=== PATIENT | female | born 1990 ===

== ENCOUNTER 2020-10-09 00:15 | Emergency (ER) | payer SELFPAY ==
[2020-10-09] MEDS ORDERED: ACETAMINOPHEN 500 MG TAB PO ONE (00:44)
[2020-10-09 01:51] VITALS: BP 129/79
--- NOTE | 2020-10-09 01:51 | Ultrasound Report ---
ULTRASOUND OBSTETRIC INDICATION / CLINICAL INFORMATION: Abdominal pain. TECHNIQUE: Transabdominal and Transvaginal. COMPARISON: None available. FINDINGS: GESTATIONAL SAC: Well-defined oval shape and intrauterine in location. Measures 5.4 mm, which corresp onds to 5 weeks, 2 days. No pole identified. YOLK SAC: No significant abnormality. ADNEXA: No significant abnormality. FREE FLUID: None. ADDITIONAL FINDINGS: None. IMPRESSION: Gestational sac seen with sac size corresponding to 5 weeks, 2 days. No pole identified (pregna ncy is likely too early to identify pole). Signer Name: Delio Valdez MD Signed: 10/09/2020 1:46 AM Workstation Name: [id number]
[2020-10-09 02:10] LABS: Bilirubin,Urine NEG (Negative); Blood,Urine NEG (Negative); Color,Urine Yellow (Yellow); Mucus,Urine FEW /HPF; Protein,Urine <15 mg/dL mg/dL (Negative); Urobilinogen,Urine < 2.0 mg/dL (<2.0)
--- NOTE | 2020-10-09 02:20 | Emergency Department Report ---
ED HPI - General Chief complaint: Abdominal Pain Stated complaint: APPROX 6WKS ;ABDOMINAL PAIN Time Seen by Provider: 10/09/20 02:09 Source: patient Mode of arrival: Ambulatory Limitations: No Limitations - History of Present Illness Initial comments: Patient is a 30-year-old female that presents emergency room with complaints of lower abdominal pain and . Patient states she took a home test 1 week ago and it was positive. Patient states her abdominal pain started 1 week ago. Patient states her pain is worsening. Patient denies nausea and vomiting. Patient denies dysuria. Patient denies chest pain and shortness of breath. Patient denies fever and chills. Patient states the abdominal pain is in her lower abdomen. Patient denies vaginal bleeding. Patient denies loss of fluid per vagina. Patient denies vaginal discharge. Patient states her last LMP was August 26, 2020. Patient denies recent travel. Patient denies recent international travel. Patient denies exposure to the novel coronavirus. Patient denies sick contacts. Patient denies fever and chills. Patient denies cough. Patient denies diarrhea. Patient denies coming in contact with anybody with symptoms of the novel coronavirus. MD Complaint: abdominal pain -: Sudden Radiation: suprapubic Severity: severe Severity scale (0 -10): 10 Quality: aching Consistency: constant Improves with: rest Worsens with: movement Associated symptoms: denies: nausea/vomiting, vaginal bleeding, vaginal discharge, abdominal pain, dysuria, headache, vision changes, malaise, dysparuenia, rash, seizure, shortness of breath, syncope, weakness Vaginal bleeding: none :: Yes OB History - Current : no complications OB History - Previous Pregnancies: no complications Pre- care: none - Related Data : 2 Para: 1 Ab: 0 Allergies Allergy/AdvReac Type Severity Reaction Status Date / Time No Known Allergies Allergy Unverified 10/09/20 00:52 ED Review of Systems ROS: Stated complaint: APPROX 6WKS ;ABDOMINAL PAIN Other details as noted in HPI Constitutional: denies: chills, fever Eyes: denies: eye pain, eye discharge, vision change ENT: denies: ear pain, throat pain Respiratory: denies: cough, shortness of breath, wheezing Cardiovascular: denies: chest pain, palpitations Endocrine: no symptoms reported Gastrointestinal: as per HPI, abdominal pain. denies: nausea, diarrhea Genitourinary: denies: urgency, dysuria, discharge Musculoskeletal: denies: back pain, joint swelling, arthralgia Skin: denies: rash, lesions Neurological: denies: headache, weakness, paresthesias Psychiatric: denies: anxiety, depression Hematological/Lymphatic: denies: easy bleeding, easy bruising ED Past Medical Hx - Past Medical History Previous Medical History?: No - Surgical History Past Surgical History?: No - Family History Family history: no significant - Social History Smoking Status: Never Smoker Substance Use Type: None ED Physical Exam - General Limitations: No Limitations General appearance: alert, in no apparent distress - Head Head exam: Present: atraumatic, normocephalic - Eye Eye exam: Present: normal appearance - ENT ENT exam: Present: mucous membranes moist - Neck Neck exam: Present: normal inspection - Respiratory Respiratory exam: Present: normal lung sounds bilaterally. Absent: respiratory distress - Cardiovascular Cardiovascular Exam: Present: regular rate, normal rhythm. Absent: systolic mu rmur, diastolic murmur, rubs, gallop - GI/Abdominal GI/Abdominal exam: Present: soft, normal bowel sounds. Absent: distended, tenderness, guarding - Extremities Exam Extremities exam: Present: normal inspection - Back Exam Back exam: Present: normal inspection - Neurological Exam Neurological exam: Present: alert, oriented X3 - Psychiatric Psychiatric exam: Present: normal affect, normal mood - Skin Skin exam: Present: warm, dry, intact, normal color. Absent: rash ED Course Vital Signs 10/09/20 00:43 Temperature 98.6 F Pulse Rate 86 Respiratory 20 Rate Blood Pressure 129/79 O2 Sat by Pulse 99 Oximetry - Reevaluation(s) Reevaluation #1: I discussed all results and clinical findings with patient. I discussed plan of care with patient. Patient agrees with plan of care. Patient is stable for discharge. Patient will be discharged home. Patient given discharge instructions. Patient voiced understanding of discharge instructions. 10/09/20 03:15 ED Medical Decision Making - Lab Data Result diagrams: 10/09/20 01:49 10/09/20 01:49 - Radiology Data Radiology results: report reviewed ULTRASOUND OBSTETRIC INDICATION / CLINICAL INFORMATION: Abdominal pain. TECHNIQUE: Transabdominal and Transvaginal. COMPARISON: None available. FINDINGS: GESTATIONAL SAC: Well-defined oval shape and intrauterine in location. Measures 5.4 mm, which corresponds to 5 weeks, 2 days. No pole identified. YOLK SAC: No significant abnormality. ADNEXA: No significant abnormality. FREE FLUID: None. ADDITIONAL FINDINGS: None. IMPRESSION: Gestational sac seen with sac size corresponding to 5 weeks, 2 days. No pole identified ( is likely too early to identify pole). - Medical Decision Making Patient is a 30-year-old female that presents emergency room with complaints of lower abdominal pain. Patient had a home positive a week ago. Patient complained of lower abdominal pain. Patient notes persistent. Patient claims lower abdominal pain. Patient had an ultrasound and ultrasound showed an early IUP. Patient stable for discharge. Patient given discharge instructions - Differential Diagnosis , lower abdominal pain , UTI, anemia Critical care attestation.: If time is entered above; I have spent that time in minutes in the direct care of this critically ill patient, excluding procedure time. ED Disposition Clinical Impression: Abdominal pain Qualifiers: Abdominal location: lower abdomen, unspecified Qualified Code(s): R10.30 - Lower abdominal pain, unspecified Qualifiers: Weeks of gestation: less than 8 weeks Qualified Code(s): Z3A.01 - Less than 8 weeks gestation of Disposition: TO HOME OR SELFCARE Is pt being admited?: No Does the pt Need Aspirin: No Condition: Stable Instructions: Creating a Plan, First Trimester of , [id number], Abdominal Pain During , Abdominal Pain (ED) Additional Instructions: Patient to follow-up with primary care in 2 to 3 days. Patient to follow-up with [facility] in 2 to 3 days. Patient to rest. Patient to increase water. Patient to avoid strenuous exercise or heavy lifting until cleared by [facility]. Patient to take Tylenol as needed for pain. Patient to take meds as directed. Patient to return to the ER if condition worsens, changes or new symptoms arise. Patient to take a vitamin. Referrals: PRIMARY MD CARON [Primary Care Provider] - 2-3 Days FREDDIE BELTRAN MD [Staff Physician] - 2-3 Days Time of Disposition: 03:15
[2020-10-09 02:28] LABS: Alanine Aminotransferase 27 units/L (7-56); Albumin 4.3 g/dL (3.9-5); Blood Urea Nitrogen 12 mg/dL (7-17); Calcium 9.1 mg/dL (8.4-10.2); Hemolysis Index 3
[2020-10-09 02:29] LABS: Basophils % (Auto) 0.4 % (0.0-1.8); Eosinophils # (Auto) 0.1 K/mm3 (0.0-0.4); Eosinophils % (Auto) 1.4 % (0.0-4.3); Lymphocytes # (Auto) 3.5 K/mm3 (1.2-5.4); Lymphocytes % (Auto) 34.4 % (13.4-35.0); Mean Corpuscular HGB Conc 34 % (30-34); Mean Corpuscular Volume 90 fl (79-97); Monocytes # (Auto) 0.6 K/mm3 (0.0-0.8); Monocytes % (Auto) 6.3 % (0.0-7.3); Platelet Count 385 K/mm3 (140-440); Red Blood Count 4.25 M/mm3 (3.65-5.03); Red Cell Distribution Width 14.1 % (13.2-15.2)
[2020-10-09 02:50] LABS: BUN/Creatinine Ratio 24
== END 2020-10-09 03:39 | disposition home or self-care (01) ==
LOC: ED 00:15
DX: O26.891 Other specified pregnancy related conditions, first trimester (principal); R10.30 Lower abdominal pain, unspecified; Z3A.01 Less than 8 weeks gestation of pregnancy
CPT/HCPCS: 36415; 76801; 76817; 80053; 81001; 84702; 84703; 85025